=== PATIENT | male | born 1975 | race African-American/Black ===

== ENCOUNTER 2017-06-18 01:11 | Inpatient (IN) | payer SELFPAY ==
[~2017-06-18] VITALS: Ht 177.8 cm; Wt 150.0 kg
[2017-06-18] VITALS (21 sets, daily range): BP systolic 112–173; BP diastolic 78–133
[2017-06-18 01:49] LABS: HEMATOCRIT 35.7 % (38.0-50.0); MCH 26.8 PG (29.0-34.0); MCV 76.6 FL (86-99); MEAN PLAT.VOLUME 11.7 uM^3 (9.0-12.4); NRBC (%) 0.2 /100 WBC (0-0); PLATELET COUNT 265 K/uL (156-360); RBC DIS.WIDTH-CV 14.8 % (11.8-14.6); RBC DIS.WIDTH-SD 40.9 % (39-53); RED BLOOD COUNT 4.66 M/uL (4.00-5.50); WHITE BLOOD COUNT 16.6 K/uL (4.1-10.2)
[2017-06-18 01:59] LABS: CHLORIDE 88 mEq/L (99-109); POTASSIUM 3.7 mEq/L (3.7-5.4); SODIUM 129 mEq/L (136-147)
[2017-06-18 02:01] LABS: GLUCOSE 342 mg/dL (70-99)
[2017-06-18 02:03] LABS: ANION GAP 22 MEQ/L (2-14)
[2017-06-18 02:05] LABS: GFR ESTIMATE (CALCULATED) 21 mL/min/
[2017-06-18 02:06] LABS: UREA NITROGEN (BUN) 52 mg/dL (9-23)
[2017-06-18 03:20] LABS: BASE EXCESS -4.9 mEq/L (-3 to +3); BICARBONATE 19.8 mEq/L (22-26); CARBOXY HGB 1.6 % (0-5); METHEMOGLOBIN 1.3 % (0-1.5); PCO2 35 mm Hg (35-45); PO2 54 mm Hg (80-100); pH 7.36 (7.35-7.45)
[2017-06-18 03:21] LABS: COMMENTS - BLOOD GASES C+; DEVICE HHFNC; FI02 60 %; O2 FLOW 30 L/MIN; SITE LR; TOTAL RESP RATE 24 resp/min
[2017-06-18 04:28] LABS: POINT-OF-CARE METER ID UU13113702
[2017-06-18 05:35] LABS: ADD MIUA? YES; BILIRUBIN NEGATIVE; BLOOD LARGE; COLOR AMBER ((YELLOW)); GLUCOSE (STRIP) 50; KETONES NEGATIVE; LEUKOCYTES NEGATIVE; NITRITE NEGATIVE; PROTEIN (STRIP) 100; SPECIFIC GRAVITY 1.015 (1.000-1.030)
[2017-06-18 05:37] LABS: POINT-OF-CARE METER ID UU14162636
[2017-06-18 05:41] LABS: BACTERIA NONE SEEN /HPF; EPITHELIAL CELLS RARE /HPF; MUCUS TRACE /LPF; RED BLOOD CELLS 0-5 /HPF (0-5); UCUL ADDED? NO; WHITE BLOOD CELLS 0-5 /HPF (0-5); WHITE BLOOD CELLS CLUMP FEW /HPF (0-5)
[2017-06-18 05:46] LABS: METH RESISTANT S AUREUS PCR NEGATIVE (NEGATIVE)
[2017-06-18 05:47] LABS: PROBE CHECK PASS; SPECIMEN PROCESSING CONTROL PASS
[2017-06-18 06:38] LABS: SAMPLE HEMOLYSIS CHECK 0; SAMPLE ICTERIC CHECK 0; SAMPLE LIPEMIA CHECK 0
[2017-06-18 07:13] LABS: Estimated Average Glucose 197 mg/dL (70-123)
[2017-06-18 07:15] LABS: HEMOGLOBIN A1c (GLYCOHEMOGLOB) 8.5 % HGB (Below 5.7)
[2017-06-18 07:21] LABS: POINT-OF-CARE METER ID UU13113731
[2017-06-18 07:50] LABS: MEAN PLAT.VOLUME 11.2 uM^3 (9.0-12.4); NRBC (%) 0.1 /100 WBC (0-0); PLATELET COUNT 252 K/uL (156-360)
[2017-06-18 08:12] LABS: ANION GAP 15 MEQ/L (2-14); CHLORIDE 97 MEQ/L (99-109); GLUCOSE 340 mg/dL (70-99); POTASSIUM 3.8 MEQ/L (3.7-5.4); SAMPLE HEMOLYSIS CHECK 0; SAMPLE ICTERIC CHECK 0; SAMPLE LIPEMIA CHECK 0; SODIUM 132 MEQ/L (136-147); UREA NITROGEN (BUN) 53 mg/dL (9-23)
[2017-06-18 08:17] LABS: ABS NEUTROPHIL COUNT 13.6; ANISOCYTOSIS 1+; BAND NEUTROPHILS 24.1 % (0-8.0); EOSINOPHIL ABS CT 0; HEMATOCRIT 34.9 % (38.0-50.0); INSTRUMENT ABS NEUTROPHIL CT 13.9 K/uL; LYMPHOCYTES 7.8 % (15.0-45.0); MACROCYTES 1+; MCH 27.4 PG (29.0-34.0); MCV 78.3 FL (86-99); NUCLEATED RBC'S 1.7; PLAT.SUFFICIENCY ADEQUATE; POIKILOCYTOSIS 1+; RBC DIS.WIDTH-CV 15.2 % (11.8-14.6); RBC DIS.WIDTH-SD 42.7 % (39-53); RED BLOOD COUNT 4.46 M/uL (4.00-5.50); SEG.NEUTROPHILS 68.1 % (46.0-76.0); WHITE BLOOD COUNT 14.8 K/uL (4.1-10.2)
[2017-06-18 08:19] LABS: GFR ESTIMATE (CALCULATED) 29 mL/min/
[2017-06-18 08:41] LABS: POINT-OF-CARE METER ID UU13113731
[2017-06-18 09:40] LABS: POINT-OF-CARE METER ID UU13113731
[2017-06-18 10:23] LABS: POINT-OF-CARE METER ID UU13113731
[2017-06-18 11:35] LABS: POINT-OF-CARE METER ID UU13113731
[2017-06-18 12:37] LABS: POINT-OF-CARE METER ID UU13113731
[2017-06-18 12:56] LABS: ANION GAP 12 MEQ/L (2-14); CHLORIDE 100 MEQ/L (99-109); POTASSIUM 3.9 MEQ/L (3.7-5.4); SAMPLE HEMOLYSIS CHECK 1; SAMPLE ICTERIC CHECK 0; SAMPLE LIPEMIA CHECK 0; SODIUM 136 MEQ/L (136-147)
[2017-06-18 13:02] LABS: GFR ESTIMATE (CALCULATED) 34 mL/min/; GLUCOSE 292 mg/dL (70-99); UREA NITROGEN (BUN) 55 mg/dL (9-23)
[2017-06-18 13:34] LABS: POINT-OF-CARE METER ID UU13113731
[2017-06-18 14:26] LABS: BASE EXCESS -2.6 mEq/L (-3 to +3); BICARBONATE 23.7 mEq/L (22-26); CARBOXY HGB 1.5 % (0-5); COMMENTS - BLOOD GASES A+C+; DEVICE HHFLNC; FI02 100 %; METHEMOGLOBIN 1.7 % (0-1.5); O2 FLOW 60 L/MIN; PCO2 46 mm Hg (35-45); PO2 73 mm Hg (80-100); SITE LR; TOTAL RESP RATE 34 resp/min; pH 7.32 (7.35-7.45)
[2017-06-18 14:53] LABS: POINT-OF-CARE METER ID UU13113731
[2017-06-18] MEDS ORDERED: HYDROCHLOROTHIA25 MG PO (15:34)
[2017-06-18 15:54] LABS: POINT-OF-CARE METER ID UU13113731
[2017-06-18 16:13] LABS: ANION GAP 11 MEQ/L (2-14); CHLORIDE 101 MEQ/L (99-109); POTASSIUM 3.7 MEQ/L (3.7-5.4); SAMPLE HEMOLYSIS CHECK 0; SAMPLE ICTERIC CHECK 0; SAMPLE LIPEMIA CHECK 0; SODIUM 137 MEQ/L (136-147)
[2017-06-18 16:18] LABS: GFR ESTIMATE (CALCULATED) 38 mL/min/; GLUCOSE 193 mg/dL (70-99); UREA NITROGEN (BUN) 54 mg/dL (9-23)
[2017-06-18 16:57] LABS: POINT-OF-CARE METER ID UU13113731
[2017-06-18 17:58] LABS: POINT-OF-CARE METER ID UU13113731
[2017-06-18 18:38] LABS: POINT-OF-CARE METER ID UU13113731
[2017-06-18 19:59] LABS: POINT-OF-CARE METER ID UU13113731
[2017-06-18 20:24] LABS: ANION GAP 12 MEQ/L (2-14); CHLORIDE 102 MEQ/L (99-109); POTASSIUM 3.7 MEQ/L (3.7-5.4); SAMPLE HEMOLYSIS CHECK 0; SAMPLE ICTERIC CHECK 0; SAMPLE LIPEMIA CHECK 0; SODIUM 140 MEQ/L (136-147)
[2017-06-18 20:30] LABS: GFR ESTIMATE (CALCULATED) 37 mL/min/; GLUCOSE 148 mg/dL (70-99); UREA NITROGEN (BUN) 53 mg/dL (9-23)
[2017-06-18 20:43] LABS: POINT-OF-CARE METER ID UU14162636
[2017-06-18 22:08] LABS: POINT-OF-CARE METER ID UU13113731
[2017-06-18 22:48] LABS: POINT-OF-CARE METER ID UU13113731
[2017-06-19] VITALS (13 sets, daily range): BP systolic 89–171; BP diastolic 51–107
[2017-06-19 00:13] LABS: POINT-OF-CARE METER ID UU13113731
[2017-06-19 01:03] LABS: POINT-OF-CARE METER ID UU13113731
[2017-06-19 01:44] LABS: POINT-OF-CARE METER ID UU13113731
[2017-06-19 02:42] LABS: POINT-OF-CARE METER ID UU13113731
[2017-06-19 03:53] LABS: MCH 26.8 PG (29.0-34.0); MCV 76.6 FL (86-99); NRBC (%) 0.5 /100 WBC (0-0); RBC DIS.WIDTH-CV 15.1 % (11.8-14.6); RBC DIS.WIDTH-SD 41.6 % (39-53); RED BLOOD COUNT 4.44 M/uL (4.00-5.50); WHITE BLOOD COUNT 21.4 K/uL (4.1-10.2)
[2017-06-19 03:56] LABS: POINT-OF-CARE METER ID UU13113731
[2017-06-19 04:05] LABS: POTASSIUM 4.1 mEq/L (3.7-5.4); SODIUM 139 mEq/L (136-147)
[2017-06-19 04:06] LABS: CHLORIDE 102 mEq/L (99-109)
[2017-06-19 04:07] LABS: GLUCOSE 156 mg/dL (70-99)
[2017-06-19 04:08] LABS: ANION GAP 16 MEQ/L (2-14)
[2017-06-19 04:11] LABS: GFR ESTIMATE (CALCULATED) 40 mL/min/; UREA NITROGEN (BUN) 65 mg/dL (9-23)
[2017-06-19 04:36] LABS: POINT-OF-CARE METER ID UU13113731
[2017-06-19 04:37] LABS: ABS NEUTROPHIL COUNT 19.8; ANISOCYTOSIS 2+; BAND NEUTROPHILS 4.8 % (0-8.0); EOSINOPHIL ABS CT 0.1; EOSINOPHILS 0.4 % (0-5.0); INSTRUMENT ABS NEUTROPHIL CT 20.2 K/uL; LYMPHOCYTES 3.1 % (15.0-45.0); MACROCYTES 1+; OVALOCYTES 1+; PLAT.SUFFICIENCY ADEQUATE; PLATELET CLUMPS PRESENT - PLATELET COUNT APPEARS ADQ.; POIKILOCYTOSIS 1+; SEG.NEUTROPHILS 87.8 % (46.0-76.0); TEAR DROP CELLS 1+
[2017-06-19 05:54] LABS: POINT-OF-CARE METER ID UU13113731
[2017-06-19 08:06] LABS: POINT-OF-CARE METER ID UU13113731
[2017-06-19 08:28] LABS: BICARBONATE 24.3 mEq/L (22-26); CARBOXY HGB 1.8 % (0-5); METHEMOGLOBIN 1.6 % (0-1.5); PO2 65 mm Hg (80-100)
[2017-06-19 08:29] LABS: COMMENTS - BLOOD GASES A+C+; DEVICE 980; FI02 100 %; INSPIRATION TIME 1.5 seconds; MECHANICAL RATE 12 resp/min; MODE AC/PC; PCO2 58 mm Hg (35-45); PEEP 18 CM/H20; PRESSURE CONTROL VENTILATION 22 CM H20; SITE RR; TOTAL RESP RATE 13 resp/min; pH 7.23 (7.35-7.45)
[2017-06-19 08:32] LABS: INTERNAL CONTROL VALID? YES
[2017-06-19 09:39] LABS: POINT-OF-CARE METER ID UU13113731
[2017-06-19 10:38] LABS: POINT-OF-CARE METER ID UU13113731
[2017-06-19 11:49] LABS: POINT-OF-CARE METER ID UU13113731
[2017-06-19 12:40] LABS: POINT-OF-CARE METER ID UU13113731
[2017-06-19 14:48] LABS: POINT-OF-CARE METER ID UU14174217; POINT-OF-CARE USER ID 606021424
== END 2017-06-19 21:55 | DRG 871 ==
LOC: EME 01:11 → EDBD 01:11 → 4WEST 03:50 → EDOF 03:50 → ENRESERV 03:52 → 4WEST 04:28
PROVIDERS: Emergency Medicine; Internal Medicine Critical Care Medicine; Specialist
PROC: 05H533Z Insertion of Infusion Device into Right Subclavian Vein, Percutaneous Approach (ICD-10-PCS; principal; 2017-06-18)
PROC: 5A12012 Performance of Cardiac Output, Single, Manual (ICD-10-PCS; principal; 2017-06-18)
PROC: 5A1935Z Respiratory Ventilation, Less than 24 Consecutive Hours (ICD-10-PCS; principal; 2017-06-18)
PROC: 0BH18EZ Insertion of Endotracheal Airway into Trachea, Via Natural or Artificial Opening Endoscopic (ICD-10-PCS; principal; 2017-06-18)
DX: A41.9 Sepsis, unspecified organism (principal); J18.9 Pneumonia, unspecified organism; J96.01 Acute respiratory failure with hypoxia; E13.10 Other specified diabetes mellitus with ketoacidosis without coma; N17.9 Acute kidney failure, unspecified; I10 Essential (primary) hypertension; E66.9 Obesity, unspecified; F14.10 Cocaine abuse, uncomplicated; I46.9 Cardiac arrest, cause unspecified; R09.02 Hypoxemia; R65.20 Severe sepsis without septic shock; F17.200 Nicotine dependence, unspecified, uncomplicated
CPT/HCPCS: 31500; 36600; 71010; 80048; 80048 91; 81003; 82010; 82803; 82947 91; 82948; 83036; 83605; 84100; 85025; 85027; 87040; 87070; 87106; 87205; 87449; 87641; 93005; 94002; 94640; 94640 76; 94644; 94799; 99202; 99281; 99285; C1751; J0171; J0282; J0360; J0692; J1100; J1644; J1815; J1956; J2060; J2250; J2270; J2704; J2997; J3370; J7030; J7040; J7050; J7120; J7644